=== PATIENT | female | born 1975 | race Caucasian/White ===

== ENCOUNTER 2024-06-11 00:03 | Emergency (ER) | payer SELFPAY ==
[~2024-06-11] VITALS: Ht 172.7 cm; Wt 137.5 kg
[2024-06-11 01:40] VITALS: TEMP 98.3
[2024-06-11] MEDS: ketorolac trometh. 30mg/ml inj. IM ONE (03:49)
[2024-06-11] MEDS: HYDROcodone/acetaminophen 10/325mg tab PO ONE (03:50)
[2024-06-11] MEDS: LORazepam 1 MG tablet PO ONE (03:50)
[2024-06-11 05:02] LABS: BASOPHILS % (AUTO) 0.2 % (0-1); EOSINOPHILS % (AUTO) 0.1 % (0-6); HEMATOCRIT 40.4 % (35.0-45.0); HEMOGLOBIN 13.4 g/dl (12.0-16.0); LYMPHOCYTES # (AUTO) 2.1 X10'3 (1.1-4.8); MEAN CORPUSCULAR HEMOGLOBIN 28.3 PG (27.0-31.0); MEAN CORPUSCULAR HGB CONC 33.1 g/dL (33.0-36.5); MEAN CORPUSCULAR VOLUME 85.6 FL (78-98); MONOCYTES # (AUTO) 0.5 X10'3 (0-0.9); MONOCYTES % (AUTO) 4.9 % (2-12); NEUTROPHILS # (AUTO) 8.2 X10'3 (1.8-7.7); NEUTROPHILS % (AUTO) 75.8 % (42-75); PLATELET COUNT 356 X10'3 (140-440); RED BLOOD COUNT 4.72 X10'6 (4.20-5.60); WHITE BLOOD COUNT 10.8 X10'3 (4.5-11.0)
[2024-06-11 05:15] LABS: ALBUMIN 3.6 G/DL (3.4-5.0); ANION GAP 11 (8-16); BLOOD UREA NITROGEN 23 MG/DL (7-18); BUN/CREATININE RATIO 27.1 (10.0-20.0); CALCIUM 8.9 MG/DL (8.5-10.1); CHLORIDE 102 MMOL/L (99-107); CREATININE 0.85 MG/DL (0.40-0.90); GLUCOSE 110 MG/DL (70-104); POTASSIUM 3.8 MMOL/L (3.5-5.1); SODIUM 136 MMOL/L (135-145); TOTAL CARBON DIOXIDE 22.9 MMOL/L (24-32); eCRCL 83 ML/MIN; eGFR 72 ML/MIN
[2024-06-11 06:47] VITALS: BP 160/90; PULSE 66; RESP 14; O2SAT 97
== END 2024-06-11 06:40 | disposition home or self-care (01) ==
LOC: ER 00:04
DX: R03.0 Elevated blood-pressure reading, without diagnosis of hypertension (principal); J45.909 Unspecified asthma, uncomplicated; G43.909 Migraine, unspecified, not intractable, without status migrainosus; I49.8 Other specified cardiac arrhythmias
CPT/HCPCS: 36415; 80048; 84484; 85025; 93005; 96372; 99285; J1885